=== PATIENT | female | born 1940 | race Caucasian/White ===

== ENCOUNTER 2020-02-23 21:44 | Emergency (ER) | payer MEDICARE ==
[2020-02-23] MEDS ORDERED: fentaNYL 100 MCG/2 ML SDV IM ONE (22:31)
--- NOTE | 2020-02-23 22:33 | EDM.PDOC ---
ED HPI GENERAL MEDICAL PROBLEM - General Chief Complaint: Back Pain or Injury Stated Complaint: FELL Time Seen by Provider: 02/23/20 22:24 Source of Information: Reports: Patient, Family, RN Notes Reviewed History Limitations: Reports: No Limitations - History of Present Illness INITIAL COMMENTS - FREE TEXT/NARRATIVE: 79-year-old female presents emergency department a complaint of low back pain, she injured herself earlier this evening when she was walking in the dark lost her balance fell on her right side buttocks region now is experiencing low back pain. 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 melanoma on foot - Infectious Disease History Infectious Disease History: Reports: C-Difficile, Chicken Pox, Measles, Pertussis (Whooping Cough) - Past Surgical History GI Surgical History: Reports: Colonoscopy Female Surgical History: Reports: Tubal Ligation Social & Family History - Tobacco Use Smoking Status *Q: Never Smoker ED ROS GENERAL - Review of Systems Review Of Systems: See Below Constitutional: Reports: No Symptoms Respiratory: Reports: No Symptoms Cardiovascular: Reports: No Symptoms GI/Abdominal: Reports: No Symptoms Musculoskeletal: Reports: Back Pain ED EXAM,LOWER BACK PAIN/INJURY - Physical Exam Exam: See Below Text/Narrative:: Examination of the back she does have limited range of motion secondary to pain she is specifically point tender about the L4 region. Exam Limited By: No Limitations General Appearance: Alert, WD/WN, No Apparent Distress Respiratory/Chest: No Respiratory Distress GI/Abdominal: Soft, Non-Tender Course - Vital Signs Last Recorded V/S: Last Vital Signs Temp 98.6 F 02/23/20 22:09 Pulse 77 02/23/20 22:09 Resp 16 02/23/20 22:09 BP 197/91 H 02/23/20 22:09 Pulse Ox 98 02/23/20 22:09 - Orders/Labs/Meds Meds: Medications Discontinued Medications Generic Name Dose Route Start Last Admin Trade Name Nghia PRN Reason Stop Dose Admin Fentanyl 50 mcg 02/23/20 22:31 02/23/20 22:44 Sublimaze IM 02/23/20 22:32 50 mcg ONETIME ONE Administration Departure - Departure Time of Disposition: 23:30 Disposition: Home, Self-Care 01 Condition: Fair Clinical Impression: Compression fracture of L5 vertebra Qualifiers: Encounter type: initial encounter Qualified Code(s): S32.050A - Wedge compression fracture of fifth lumbar vertebra, initial encounter for closed fracture - Discharge Information Instructions: Spinal Compression Fracture Referrals: PCP,None [Primary Care Provider] - Forms: ED Department Discharge Additional Instructions: Use ibuprofen for baseline pain control use hydrocodone for breakthrough pain please follow-up with your primary care provider upon return home for further evaluation and treatment call or return to the emergency department worsening of symptoms, Sepsis Event Note (ED) - Evaluation Sepsis Screening Result: No Definite Risk - Focused Exam Vital Signs: Vital Signs Temp Pulse Resp BP Pulse Ox 02/23/20 22:09 98.6 F 77 16 197/91 H 98 02/23/20 22:05 98.6 F 77 16 197/91 H 98 - Assessment/Plan Plan: Assessment Acuity = acute Site and laterality = L5 compression fracture unknown age Etiology = probably related to trauma Manifestations = none Location of injury = Home Lab values = CT describes a fracture however age is undetermined Plan Good relief with fentanyl provided in the emergency department prescription written for hydrocodone 5/325 1 tab p.o. 3 times daily PRN total #10 she will follow-up with her primary care upon return home This note was dictated using [employer] voice recognition software please call with any questions on syntax or grammar.
--- NOTE | 2020-02-23 23:13 | CRLCT ---
INDICATION: trauma, pain L4 INDICATION: Trauma, pain at the L4 level TECHNIQUE: CT lumbar spine without contrast. COMPARISON: None FINDINGS: Vertebral alignment: Alignment is normal. Vertebrae: Mild biconcave endplate compression deformity L5 vertebral body of unknown acuity. The osseous structures are osteopenic in appearance. Discs and facet joints: Facet joint degenerative changes L4-L5 and L5-S1.. Extraspinal findings: Prevertebral soft tissues and visualized retroperitoneum are unremarkable. IMPRESSION: Mild L5 biconcave endplate compression deformity of unknown acuity this has a more chronic appearance. No evidence of acute trauma at the L4 level. Dictated by Mir Holguin MD @ 02/23/2020 11:11:45 PM Please note that all CT scans at this facility use dose modulation, iterative reconstruction, and/or weight-based dosing when appropriate to reduce radiation dose to as low as reasonably achievable. Dictated by: Mir Holguin MD @ 02/23/2020 23:11:52 (Electronically Signed)
== END 2020-02-24 | disposition home or self-care (01) ==
LOC: JP.ED 21:44
DX: S32.059A Unspecified fracture of fifth lumbar vertebra, initial encounter for closed fracture (principal); F32.9 Major depressive disorder, single episode, unspecified; E03.9 Hypothyroidism, unspecified; Z88.0 Allergy status to penicillin; Z79.899 Other long term (current) drug therapy; W01.0XXA Fall on same level from slipping, tripping and stumbling without subsequent striking against object, initial encounter
CPT/HCPCS: 72131; 96372; 99283; J3010